=== PATIENT | female | born 1945 | race Caucasian/White ===

== ENCOUNTER 2023-01-24 23:22 | Emergency (ER) | payer MEDICARE, SELFPAY ==
--- NOTE | 2023-01-24 00:35 | RAD_ITS ---
EXAM: XR Chest 2 Views INDICATION: Female, 77 years old. Shortness of breath TECHNIQUE: PA and lateral views COMPARISON: None FINDINGS: DEVICES: None LUNGS: Hyperexpansion of the lungs. No confluent airspace opacity. Mild coarsened prominence of interstitial markings throughout the lung bases. Calcified nodule right mid lung base. No pleural effusion or pneumothorax. MEDIASTINUM: Cardiac and mediastinal silhouettes are within normal limits. No central pulmonary vascular congestion. Consultation the aortic arch. . SKELETAL STRUCTURES: Kyphotic deformity of the thoracic spine. Mild to moderate multilevel degenerative disc disease of the thoracic spine. Neurostimulator generator and leads overlying the right upper hemithorax.. UPPER ABDOMEN: Unremarkable RAD/Chest PA and Lateral IMPRESSION: Coarsened interstitial parenchymal change of the lung bases with no acute cardiopulmonary disease Electronically Signed: Jose Bernal MD at 1:32 EDT ,
[2023-01-24 23:24] VITALS: BP 160/82; PULSE 89; RESP 16; TEMP 36.8; O2SAT 98; BMI 20.5
--- NOTE | 2023-01-24 23:56 | EKG12_ITS ---
Test Reason : Blood Pressure : / mmHG Vent. Rate : 074 BPM Atrial Rate : 074 BPM P-R Int : 166 ms QRS Dur : 132 ms QT Int : 424 ms P-R-T Axes : 083 -20 135 degrees QTc Int : 470 ms Normal sinus rhythm Left ventricular hypertrophy with QRS widening and repolarization abnormality ( Sokolow-Zaldivar , Isaac l product ) Cannot rule out Septal infarct , age undetermined Abnormal ECG No previous ECGs available Confirmed by DON MARINO, THOMAS ([id number]), editorial assistant MINESH JAFFE ([id number]) on 01/29/2023 10:28:17 AM Referred By: Confirmed By:THOMAS OCHOA MD
[2023-01-24 23:58] VITALS: BMI 20.5
--- NOTE | 2023-01-25 00:01 | EDS_ITS ---
HPI History of Present Illness Chief Complaint: Neuro S/Sx Informant: patient Narrative Narrative: Presents for recurrent symptoms that of been going on for 2 months or more. These have been more prominent in the last several weeks. She states she was admitted to [facility] for this and discharged with tramadol, but it is not helping the headaches. She has follow-up appointments that have not occurred yet including with neurology. She sees neurology for Parkinson's and deep brain stimulator which is the reason they were unable to perform an MRI according to the patient. Patient states her symptoms include headache and vertigo that oftentimes occur s imultaneously and last for hours or day or 2, but not occurring every day, last started about 10 hours ago prior to evaluation here today. She also gets numbness in her left leg, but that only lasts for minutes at a time. When she feels vertiginous and has a headache she feels short of breath and it is all worse to lie down including the vertigo. This is also worse with certain head movements/positions. She agrees to having nausea, and occasionally visual field cut to the left. She states she has weakness in both of her legs they feel rubbery but no focal weakness at all. At times has some trouble with slurred speech with this but not currently. No chest discomfort no cough or fevers. No leg pain or swelling. She takes no antiplatelet or anticoagulant medications. [facility] Medical History Former smoker Parkinson's disease Home Medications alendronate 70 mg tablet 70 mg PO QWEEK 01/25/23 [History Last Taken Unknown] bumetanide 1 mg tablet 1.5 mg PO DAILY 01/25/23 [History Last Taken Unknown] carbidopa 37.5 mg-levodopa 150 mg-entacapone 200 mg tablet (Stalevo 150) 1 tab PO Q3H 01/25/23 [History Last Taken Unknown] carbidopa 37.5 mg-levodopa 150 mg-entacapone 200 mg tablet (Stalevo 150) 1 tab PO Q3H [place] 01/25/23 [History Last Taken Unknown] carbidopa ER 50 mg-levodopa 200 mg tablet,extended release 1 tab PO QHS 01/25/23 [History Last Taken Unknown] carvedilol 3.125 mg tablet 3.125 mg PO BID 01/25/23 [History Last Taken Unknown] levothyroxine 88 mcg capsule 88 mcg PO DAILY 01/25/23 [History Last Taken Unknown] meclizine 25 mg tablet 25 mg PO Q8H PRN PRN Dizziness #20 tabs 01/25/23 [Rx Last Taken Unknown] ondansetron 4 mg disintegrating tablet 8 mg (2 x 4 mg) PO Q8H PRN PRN Nausea #24 tabs 01/25/23 [Rx Last Taken Unknown] pantoprazole 40 mg tablet,delayed release 40 mg PO DAILY 01/25/23 [History Last Taken Unknown] rosuvastatin 10 mg tablet 10 mg PO DAILY 01/25/23 [History Last Taken Unknown] tramadol 50 mg tablet 50 mg PO Q6H PRN pain 01/25/23 [History Last Taken Unkno wn] trazodone 150 mg tablet 150 mg PO QHS 01/25/23 [History Last Taken Unknown] venlafaxine 75 mg tablet,extended release 24 hr 75 mg PO BID 01/25/23 [History Last Taken Unknown] Allergy/AdvReac Type Severity Reaction Status Date / Time Penicillins Allergy Severe Angioedema Verified 01/24/23 23:24 TAWAIN AdvReac Mild Vomiting Uncoded 01/24/23 23:24 Surgical History H/O: hysterectomy History of appendectomy History of tonsillectomy Social History Smoking Status: Former smoker ROS ROS ED Constitutional Constitutional ED: Denies chills or fever(s) Eyes Eyes: Reports as per HPI, change in vision and other Details: No current visual field cuts ; Denies diplopia ENT ENT ED: Reports vertigo; Denies rhinorrhea or sore throat Cardiovascular Cardiovascular: Reports orthopnea; Denies chest pain or palpitations Respiratory/Chest Respiratory/Chest: Reports dyspnea and orthopnea; Denies cough Gastrointestinal Gastrointestinal: Reports nausea; Denies abdominal pain, diarrhea or vomiting Genitourinary Genitourinary ED: Denies dysuria or hematuria Musculoskeletal Musculoskeletal: Denies back pain or neck pain Integumentary Denies abscess or rash Neurologic Neurologic: Reports headache(s), paresthesias LLE and other Details: Disequilibrium when feels vertiginous ; Denies weakness Psychiatric Psychiatric: Reports anxiety; Denies suicidal thoughts EXAM Physical Exam Const Vital Signs: 01/24/23 23:24 Temperature 98.3 F Temperature Source Temporal Pulse Rate 89 Respiratory Rate 16 Blood Pressure 160/82 H Blood Pressure Mean 108 Pulse Ox 98 Oxygen Delivery Method Room Air Positive well nourished and well developed General Appearance ED: well developed and NAD HEENT Reports moist mucous membranes HEENT Narrative: TMs normal bilaterally normocephalic and atraumatic Eyes PERRL and EOMs intact bilaterally Eyes Narrative: No visual field deficits. No significant photophobia right now. No pathologic nystagmus. Neck full ROM, no lymphadenopathy, supple and no JVD Resp normal respiratory effort and clear to auscultation bilaterally Cardio regular rate, regular rhythm and no murmurs Rate: Negative for tachycardic GI non-tender and non-distended Auscultation: normoactive bowel sounds Palpation: soft Back/Spine no CVA tenderness General Back: other FROM Extremity normal to inspection General Extremety ED: Negative for edema, pulses abnormal or tenderness General Extremity: Negative for edema or pulses abnormal Neuro oriented x3, CN's II-XII intact bilaterally and no sensory deficits noted Neuro Narrative: Mhephu-pk-owfr and jhqg-sa-efnc bilaterally. Normal speech. [place]pike makes vertiginous symptoms worse bilaterally, but it is nonspecific. Does not elicit significant nystagmus. Sensorium / Orientation: awake and alert Motor Exam: strength 5/5 throughout Psych Mood & Affect: anxious Skin no rashes or lesions noted and no wounds MDM MDM MDM Narrative Medical decision making narrative: Patient has a [employer] deep brain stimulator. I consulted the [employer] website and telephone technical support line, her device is MR conditional on 1.5 Roseanna horizontal cylindrical MR machines. Our CT technicians think we have a 1.5 Roseanna device but they are not sure, and the line states that preauthorization from [employer] clinician is required prior to getting MRI. She states she has to go to [place] for an MRI. She has been having these episodes for months. We obtained a CT of the head here, it shows nothing acute. I reviewed the images and report I agree with it. I do not think she needs an emergent MRI. This is episodic and I think she can follow-up as an outpatient. She feels a lot better after receiving a dose of Reglan, which I do not want her to continue due to its potential for making Parkinson's worse, and meclizine. Without specifically treating her blood pressure on reevaluation it is in the 130s. I do not think she is having an acute stroke. The rest of her work-up was unremarkable and I am comfortable discharging her home she is comfortable with that plan and she was given a neurologist to follow-up with, because it is going to take a long time for her to follow-up with a neurologist in the system. Lab Data Attestation: I reviewed the patient's lab results. Labs: Laboratory Results - last 24 hr 01/25/23 00:00 WBC 3.8 L RBC 3.35 L Hgb 10.4 L Hct 32.7 L MCV 97.6 MCH 31.0 MCHC 31.8 L RDW Std Deviation 43.8 RDW Coeff of Denisa 12.2 Plt Count 204 MPV 11.0 Immature Gran % (Auto) 1.300 H Neut % (Auto) 59.8 Lymph % (Auto) 23.2 [place] % (Auto) 11.5 H Eos % (Auto) 2.6 Baso % (Auto) 1.6 H Absolute Neuts (auto) 2.3 Absolute Lymphs (auto) 0.89 Nucleated RBC % 0 Sodium 138 Potassium 3.5 Chloride 105 Carbon Dioxide 29.0 Anion Gap 4 L BUN 18 Creatinine 0.84 Estim Creat Clear Calc 50.36 Est GFR (MDRD) Af Amer 84 Est GFR (MDRD) Non-Af 69 BUN/Creatinine Ratio 21.4 H Glucose 81 Calcium 9.1 Troponin I High Sens 15 B-Natriuretic Peptide 185.9 H Radiography Diagnostic Testing: Clinical Impression(s) from Imaging Studies Chest X-Ray 01/24/23 00:35 IMPRESSION: Coarsened interstitial parenchymal change of the lung bases with no acute cardiopulmonary disease Electronically Signed: Jose Bernal MD at 1:32 EDT , Brain CT 01/25/23 00:24 IMPRESSION: 1. No acute intracranial abnormality. 2. Mild bilateral periventricular and subcortical white matter chronic small vessel disease with age appropriate cerebral atrophy. 3. Deep brain stimulators in place. 4. Mild chronic paranasal sinus disease Electronically Signed: Jose Bernal MD at 0:59 EDT , Rhythm Strip Rhythm Strip: Sinus Rhythm Rate: 75 Ectopy: None EKG Initial EKG: Attestation: I personally reviewed and interpreted this EKG as follows: Interpretation: Sinus Rhythm and No Acute Injury Pattern Comments: LV strain / LVH pattern Prior EKG tracings: not available for review Prior: No Prior Discharge Plan Triage Chief Complaint: Neuro S/Sx ED Provider: Jasbir Castro Dx/Rx/DC Orders Clinical Impression: Dysarthria, Left leg paresthesias, Vertigo, Intermittent headache Instructions: ED Headache Unspecified, ED Vertigo, Unspecified Prescriptions: New meclizine [meclizine] 25 mg tablet 25 mg PO Q8H PRN PRN (Reason: Dizziness) Qty: 20 0RF ondansetron [ondansetron] 4 mg tablet,disintegrating 8 mg PO Q8H PRN PRN (Reason: Nausea) Qty: 24 0RF No Action carbidopa-levodopa 50-200 mg tablet extended release 1 tab PO QHS levothyroxine 88 mcg capsule 88 mcg PO DAILY bumetanide 1 mg tablet 1.5 mg PO DAILY venlafaxine 75 mg tablet extended release 24hr 75 mg PO BID rosuvastatin 10 mg tablet 10 mg PO DAILY pantoprazole 40 mg tablet,delayed release (DR/EC) 40 mg PO DAILY trazodone 150 mg tablet 150 mg PO QHS carvedilol 3.125 mg tablet 3.125 mg PO BID Rx Instructions: must administer with a meal/food tramadol 50 mg tablet 50 mg PO Q6H PRN (Reason: pain) alendronate 70 mg tablet 70 mg PO QWEEK Patient Comments: tuesdays ffcjredph-lmohzrvw-dpeojsvihn [Stalevo 150] 37.5-150-200 mg tablet 1 tab PO Q3H Rx Instructions: LAST DOSE AT 1900 mgiubrfja-lobsvjsi-osodbkdvvn [Stalevo 150] 37.5-150-200 mg tablet 1 tab PO Q3H Patient Comments: LAST DOSE AT 1900 Primary Care Provider: Tenisha Angel Referrals: Bryon Corley MD [Non-Staff -Ordering Privileges] - (call for appt) Disposition Disposition: Home, Self Care
[2023-01-25] MEDS: Metoclopramide 10 MG/2 ML Vial 5 MG IV (00:03)
[2023-01-25] MEDS: Meclizine HCl 25 MG Tablet PO (00:05)
[2023-01-25 00:19] LABS: Absolute Lymphocyte Count 0.89 X10^3/uL (0.83-4.51); Absolute Neutrophil Count 2.3 X10^3/uL (2.0-7.7); Basophil# 0.06 X10^3/uL; Basophil% 1.6 % (0-1); Eosinophils% 2.6 % (0-5); Hematocrit 32.7 % (37-47); Hemoglobin 10.4 g/dL (12.0-15.0); Lymphocyte # 0.89 X10^3/ul (0.83-4.51); Lymphocyte % 23.2 % (19-41); Mean Corp Hgb Conc 31.8 g/dL (32-36); Mean Corpuscular Volume 97.6 fL (81-99); Monocyte# 0.44 X10^3/uL; Monocyte% 11.5 % (0-10); NRBC Flagged by Analyzer 0 % (0-5); Neutrophil % 59.8 % (47-70); Platelet Count 204 K/mm3 (150-450); RBC Distribution Width CV 12.2 % (11.6-14.6); RBC Distribution Width SD 43.8 fl (35.1-43.9); Red Blood Count 3.35 M/mm3 (4.2-5.4); White Blood Count 3.8 K/mm3 (4.4-11.0)
--- NOTE | 2023-01-25 00:24 | CT_ITS ---
STUDY: CT BRAIN WITHOUT CONTRAST REASON FOR EXAM: Female, 77 years old. Headache, vertigo, and left lower extremity numbness. RADIATION DOSAGE (If Supplied By Facility): CTDIvol = ( 44.99 ) mGy, DLP = ( 829.85 ) mGycm TECHNIQUE: Transaxial CT imaging of the brain was performed without administration of intravenous contrast material. Individualized dose optimization techniques were used for this CT. COMPARISON: No relevant priors. FINDINGS: Normal soft tissue structures. Normal calvarium. There is mild cerebral atrophy with widening of the extra-axial spaces and ventricular dilatation. There is mild bilateral periventricular and subcortical white matter hypoattenuation which is symmetric in distribution. Bilateral deep brain stimulators in place. Normal basal ganglia and thalami. Normal brainstem. Normal cerebellum. There is no intracranial hemorrhage. There are no findings of an acute ischemic infarction. There is mild mucoperiosteal thickening of the paranasal sinuses. CT/Brain/Head without Contrast IMPRESSION: 1. No acute intracranial abnormality. 2. Mild bilateral periventricular and subcortical white matter chronic small vessel disease with age appropriate cerebral atrophy. 3. Deep brain stimulators in place. 4. Mild chronic paranasal sinus disease Electronically Signed: Jose Bernal MD at 0:59 EDT ,
[2023-01-25 00:30] LABS: Anion Gap 4 (5-15); BUN 18 mg/dL (7-18); BUN/Creat Ratio 21.4 RATIO (10-20); Calcium,Total 9.1 mg/dL (8.5-10.1); Chloride 105 mmol/L (98-107); Creatinine, Serum 0.84 mg/dL (0.55-1.02); EST Glomerular Filtration Rate 69 mL/min (>60); Est Glom Filt Rate - Afr Amer 84 mL/min (>60); Estimated Creatinine Clearance 50.36 ml/min; Glucose 81 mg/dL (74-106); Potassium 3.5 mmol/L (3.5-5.1); Sodium Level 138 mmol/L (136-145); Troponin-I HS 15 pg/mL (3.0-54.0)
[2023-01-25 01:30] LABS: BNP,B-Type NATRIURETIC PEPTIDE 185.9 pg/mL (0-100)
[2023-01-25 02:15] VITALS: BP 120/71; PULSE 76; RESP 16; O2SAT 98
== END 2023-01-25 02:41 | disposition home or self-care (01) ==
PROVIDERS: Emergency Provider Emergency Medicine; PCP Internal Medicine; Visit Provider Emergency Medicine
DX: R47.1 Dysarthria and anarthria (principal); G20 Parkinson's disease; R20.2 Paresthesia of skin; R06.00 Dyspnea, unspecified; R51.9 Headache, unspecified; R42 Dizziness and giddiness; R11.0 Nausea; Z79.890 Hormone replacement therapy; Z79.899 Other long term (current) drug therapy; Z87.891 Personal history of nicotine dependence
CPT/HCPCS: 70450; 71046; 80048; 83880; 84484; 85025; 93005; 96374; 99284; A4216